=== PATIENT | female | born 1985 | race Caucasian/White ===

== ENCOUNTER 2020-12-10 20:48 | Emergency (ER) | payer OTHER ==
[~2020-12-10] VITALS: Ht 162.6 cm; Wt 63.5 kg
[2020-12-10 20:50] VITALS: BP 159/110
--- NOTE | 2020-12-10 20:50 | NUR ---
2041-- [facility] TO CHAIR Jacome
--- NOTE | 2020-12-10 21:05 | NUR ---
PATIENT BIB [facility]. PATIENT EXAMINED BY DR. ABREU. PATIENT MEDICALLY CLEARED AND RELEASED IN CUSTODY IN STABLE CONDITION. ORIGINAL PRE-BOOK FORM GIVEN TO OFFICER [facility] #[id number].
== END 2020-12-10 21:05 ==
LOC: MED 20:48
DX: F10.129 Alcohol abuse with intoxication, unspecified (principal); Z02.89 Encounter for other administrative examinations; V98.8XXA Other specified transport accidents, initial encounter; Y93.89 Activity, other specified; Y92.89 Other specified places as the place of occurrence of the external cause; Y99.8 Other external cause status; Y90.9 Presence of alcohol in blood, level not specified
CPT/HCPCS: 99283